=== PATIENT | female | born 1985 | race Caucasian/White ===

== ENCOUNTER 2018-01-01 06:20 | Day surgery (SDC) | payer BC ==
[2017-12-31 12:12] VITALS: BMI 32.4
[2018-01-01] MEDS ORDERED: Lidocaine 1% (PF) 30 ML VIAL ONE (06:40)
[2018-01-01] MEDS ORDERED: CEFAZOLIN/Water 2 GM/20 ML SYRINGE ONE (06:55)
[2018-01-01] MEDS ORDERED: Midazolam HCl 2 mg/2 ml Vial ONE (07:15)
[2018-01-01] MEDS ORDERED: Fentanyl 100 MCG/2 ML VIAL ONE (07:16)
[2018-01-01 07:37] LABS: BHCG - Serum Negative (NEGATIVE)
[2018-01-01 07:38] LABS: Pregs Control Background? CLEAR/WHITE (CLR/WHITE); Pregs Control Bar Appear? YES (CONTROL BAR)
[2018-01-01] MEDS ORDERED: Bupivacaine PF 0.5% 30 ML VIAL ONE (08:11)
[2018-01-01] MEDS ORDERED: PROPOFOL 200 MG/20 ML VIAL ONE (09:41)
[2018-01-01] MEDS ORDERED: Dexamethasone 20 MG/5 ML VIAL ONE (09:41)
[2018-01-01] MEDS ORDERED: Ondansetron HCl/PF 4 MG/2 ML Vial ONE (09:41)
--- NOTE | 2018-01-01 10:49 | OP ---
DATE OF PROCEDURE: 01/01/2018 PREOPERATIVE DIAGNOSIS: Right cubital tunnel. POSTOPERATIVE DIAGNOSIS: Right cubital tunnel. PROCEDURE PERFORMED: 1. Right arm open ulnar nerve release and transposition. 2. Placement of a posterior long arm splint to right upper extremity. SURGEON: Claude Green M.D. NURSE STAFF: None. BLOOD LOSS: Minimal. COMPLICATIONS: None. ANESTHESIA: She had general anesthetic. DISPOSITION: She went to the recovery room in stable condition. IMPLANTS: There were no implants. INDICATIONS: A 32-year-old female who has diagnosed cubital tunnel on EMG/NCV and despite trying non operative methods, she has continued to have severe symptoms. At this time, she wished to have her n erve release. DESCRIPTION OF PROCEDURE: After all appropriate consent forms were explained and signed, she was phoebe en to the operating room and at this time was given general anesthetic. Once anesthesia was appropri ate, the patient had a tourniquet placed on the right arm and the right arm was then prepped and drap ed in standard surgical fashion. Incision line was drawn out midway between the medial epicondyle an d the olecranon and the limb was exsanguinated and the tourniquet was taken up to 250 mmHg. Using lo upe magnification, a 15 blade was used to incise down through skin only. Bipolar cautery was then us ed to coagulate any brisk venous bleeding. At this time, a combination of scissors and the bipolar w ere used to find the ulnar nerve and this was then traced proximal and distal down to its first motor branch removing all adhesions and soft tissue constrictions. At this time, a moist Ray-Nader sponge w as placed into the wound and the tourniquet was let down. Bipolar cautery was used to coagulate any brisk venous bleeding. We then thoroughly irrigated and dried. We then took a large Vicryl and plac ed 3 sutures to close the cubital tunnel so that the ulnar nerve could not fall back into this. Once this was done, 2-0 Vicryl and Prolene sutures were used to close skin. A bulky sterile dressing was applied and a long arm splint was then placed on the right upper extremity. The patient had infiltr ation of Marcaine in the soft tissues prior to closure for postop pain relief. Once the splint had d ried, the patient was awakened and taken to the recovery room in stable condition. All counts were c orrect at the end of the case and she received preoperative IV antibiotics.
== END 2018-01-01 10:39 | disposition home or self-care (01) ==
LOC: SDC 06:20
PROVIDERS: ATTEND Orthopaedic Surgery
PROC: 01N40ZZ Release Ulnar Nerve, Open Approach (ICD-10-PCS; principal; 2018-01-01)
DX: G56.21 Lesion of ulnar nerve, right upper limb (principal); N28.9 Disorder of kidney and ureter, unspecified; Z79.891 Long term (current) use of opiate analgesic; Z79.899 Other long term (current) drug therapy; Z88.6 Allergy status to analgesic agent; Z90.5 Acquired absence of kidney; Z98.890 Other specified postprocedural states
CPT/HCPCS: 84703; J1100; J2001; J2250; J2405; J2704; J3010; S0020

== ENCOUNTER 2019-06-19 10:08 | Emergency (ER) | payer BC ==
[2019-06-19 11:02] LABS: #Eosinphils 0.1 thou/uL (0.0-0.7); #Lymphocytes 1.9 thou/uL (1.20-3.40); #Monocytes 0.8 thou/uL (0.11-0.59); #Neutrophils 8.7 thou/uL (1.40-6.50); %Basophils 0.2 % (0.0-1.0); %Eosinophils 0.5 % (0.0-10.0); %Lymphocytes 16.2 % (21.0-51.0); %Monocytes 7.3 % (0.0-10.0); %Neutrophils 75.7 % (42.0-75.0); Mean Corpuscular HGB CONC 34.5 g/dL (32.0-36.0); Mean Corpuscular Volume 92.9 fL (78.0-98.0); Mean Platelet Volume 6.8 fL (7.4-10.4); Platelet Count 296 thou/uL (130-400); RBC Distribution Width 11.4 % (11.5-14.5); Red Blood Cell (RBC) Count 4.06 mill/uL (4.20-5.40); White Blood Cell (WBC) Count 11.4 thou/uL (4.8-10.8)
[2019-06-19 11:35] LABS: Bacteria/HPF None Seen HPF (None Seen); Bilirubin Negative (Negative); Blood, Urine 2+ (Negative); Clarity Clear (Clear); Glucose, Urine (Dipstick) Normal (Negative); Leukocyte Negative Leu/uL (Negative); Nitrite Negative (Negative); Protein, Urine (Dipstick) Negative (Neg-Trace); RBC/HPF 0-3 HPF (0-3); Squamous Epithelial 0-3 HPF (0-3); Urobilinogen Normal mg/dL (Less than 2); WBC/HPF 0-3 HPF (0-3)
--- NOTE | 2019-06-19 11:57 | ULT ---
Pelvic sonogram, transabdominal and transvaginal imaging with duplex evaluation HISTORY: Positive test. Vaginal bleeding. FINDINGS: Urinary bladder is completely decompressed. Uterus has a homogeneous echotexture and measur es up to 9.4 cm. Endometrium is 0.7 cm. No gestational sac visible. Nabothian cysts of the cervix. Within the anterior uterine myometrium, a somewhat ill-defined oval 0.7 cm hypoechoic nodule is prese nt. No free fluid. Each ovary has normal appearance with good color and spectral Doppler flow. IMPRESSION: Very small uterine fibroid. No evidence of intrauterine gestation or other significant ab normality.
== END 2019-06-19 14:37 | disposition home or self-care (01) ==
LOC: ERS 10:08
DX: O20.9 Hemorrhage in early pregnancy, unspecified (principal); Z79.891 Long term (current) use of opiate analgesic; Z79.899 Other long term (current) drug therapy; Z3A.01 Less than 8 weeks gestation of pregnancy
CPT/HCPCS: 36415; 76856; 81003; 81015; 84702; 85025; 86900; 86901; 90384; 96372

== ENCOUNTER 2019-06-22 14:42 | Emergency (ER) | payer BC ==
[2019-06-22 15:27] LABS: #Eosinphils 0.1 thou/uL (0.0-0.7); #Lymphocytes 2.2 thou/uL (1.20-3.40); #Monocytes 0.7 thou/uL (0.11-0.59); #Neutrophils 3.8 thou/uL (1.40-6.50); %Basophils 0.7 % (0.0-1.0); %Eosinophils 1.1 % (0.0-10.0); %Lymphocytes 31.4 % (21.0-51.0); %Monocytes 10.6 % (0.0-10.0); %Neutrophils 56.2 % (42.0-75.0); Hemoglobin 13.5 g/dL (12.0-16.0); Mean Corpuscular HGB CONC 34.4 g/dL (32.0-36.0); Mean Platelet Volume 7.1 fL (7.4-10.4); Platelet Count 288 thou/uL (130-400); RBC Distribution Width 11.4 % (11.5-14.5); Red Blood Cell (RBC) Count 4.22 mill/uL (4.20-5.40); White Blood Cell (WBC) Count 6.8 thou/uL (4.8-10.8)
[2019-06-22 15:42] LABS: BHCG - Serum POSITIVE (NEGATIVE); Pregs Control Background? CLEAR/WHITE (CLR/WHITE); Pregs Control Bar Appear? YES (CONTROL BAR)
--- NOTE | 2019-06-22 19:57 | ULT ---
Ultrasound of the pelvis: 06/22/2019 COMPARISON:06/19/2019 HISTORY:Vaginal bleeding TECHNIQUE: Multiplanar grayscale sonographic imaging of the pelvis obtained with transabdominal and e ndovaginal. Ovaries are assessed with Doppler interrogation including color flow and spectral analysis. FINDINGS: The uterus [id number] x 4.4 x 6.5 cm and demonstrates an endometrial thickness of2-3 mm. The right ovary measures3.2 x 1.8 x 1.8 cm and demonstrates normal blood flow without evidence for ma ss. The left ovary measures2.8 x 2.4 x 2.1 cm and demonstrates normal blood flow without evidence for mas s. No free fluid noted in the pelvis IMPRESSION:Unremarkable pelvic ultrasound.
== END 2019-06-22 21:10 | disposition home or self-care (01) ==
LOC: ERS 14:42
DX: O03.9 Complete or unspecified spontaneous abortion without complication (principal)
CPT/HCPCS: 36415; 76856; 84702; 84703; 85025; 86900; 86901